=== PATIENT | male | born 1970 | race Caucasian/White ===

== ENCOUNTER 2017-03-25 10:03 | Emergency (ER) | payer OTHER ==
[~2017-03-25] VITALS: Ht 177.8 cm; Wt 102.3 kg
[~2017-03-25 10:03] MED LIST: LISI40TA PO; METH54TA4 PO
[2017-03-25 10:16] VITALS: BP 153/108; PULSE 90; RESP 12; O2SAT 97
--- NOTE | 2017-03-25 11:00 | ED.REPORT ---
HPI-Extremity Problem Lower Date of Service Mar 25, 2017 ED Provider: Doc,Ed MD History of Present Illness: swelling above right knee noticed 4 days ago. called MD , told to go to ER for ? dvt. denies pain. Nursing Notes Stated Complaint: RT LEG SWELLING Chief Complaint: Extremity Trauma Nursing Notes Reviewed: Yes Allergies: Coded Allergies: codeine (Verified Allergy, Severe, 01/28/15) propranolol (Verified Allergy, Severe, 01/28/15) Scheduled Lisinopril-Expunged Drug, Do Not Renew! (Lisinopril-Expunged Drug, Do Not Renew! ) 40 Mg Tablet 5 MG PO DAILY Methylphenidate ER (Concerta) 54 Mg Tab.er.24 54 MG PO DAILY General Time Seen by MD: 10:59 Chief Complaint Knee injury left Hx Obtained From: Patient Onset Occurred: 4 days ago Caused by: Accidental Past Medical History Past Medical History Notes: PCP: Dr. Gomez Chronic pain Past Medical History ADHD Double compound fracture Hernia Reports: Hypertension Past Surgical History Left leg double compound fracture repair 2 PCL's repalcement in knee Hernia surgery Vasestomy 2x Vasectomy reversal Family History Noncontributory Smoking History Former Smoker Social History Alcohol Use: "Social" Drug Use: Denies drug use Other Social History: Occupation lives with of 21 years and 4 kids Ambulatory Status Independent Review of Systems Basic Review of Systems Eyes: Vision NL, No discharge : No dysuria, No frequency Psychiatric: Normal thought content Physical Exam Initial Vital Signs Vital Signs (First) Date Time Temp Pulse Resp B/P Pulse Ox O2 Delivery O2 Flow Rate FiO2 03/25/17 10:16 37.0 90 12 153/108 97 Room Air Initial VS: Reviewed, Vital signs abnormal General/Constitutional: Well-developed, Well-nourished Head / Eyes: Atraumatic, Normocephalic, PERRL ENT: Mucous membranes moist, Conjunctiva normal, No scleral icterus Neck: Supple, Non-tender, Full range of motion Respiratory: Breath sounds normal, Clear to auscultation, No respiratory distress Cardiovascular: Regular rate & rhythm, Heart sounds normal, Intact distal pulses Abdomen / GI: Soft, Non-tender, No guarding, No rebound, No distention Back: No CVA tenderness Lymphatic: No lymphadenopathy Upper Extremities: Vascular intact, Neuro intact, No swelling, No tenderness Skin: Warm, Dry, No cyanosis Neurologic: Alert, Oriented, Nonfocal Psychiatric: Mood/affect normal, Behavior normal, Normal thought content right thigh has sqwelling medially. No increased warmth, no erthyma, knee has full range of motion Ankle / Foot: Atraumatic, Inspection NL, Full range of motion, No swelling, No erythema General/Constitutional: Awake, Alert, No acute distress, Well appearing, Well developed Respiratory / Chest: Atraumatic, Breath sounds NL, Breath sounds = bilat Cardiovascular: Heart rate NL, Regular rhythm, Heart sounds NL, No gallop Interpretation & Diagnostics Interpretation & Diagnostics: US report per tech no DVT, area of swelling shows small amount of fluid. No sign of lipoma Lab Results Interpretation Result Diagram: 03/25/17 1140 03/25/17 1140 Test 03/25/17 11:40 White Blood Count 5.4th/mm3 (3.8-10.1) Red Blood Count 4.89mil/mm3 (4.40-5.80) Hemoglobin 14.8g/dL (13.8-17.2) Hematocrit 41.5% (41.0-50.0) Mean Corpuscular Volume 84.9fL (81-100) Mean Corpuscular Hemoglobin 30.3pg (27.0-35.0) Mean Corpuscular Hemoglobin Concent 35.7% (32.0-37.0) Red Cell Distribution Width 12.9% (12.3-15.4) Platelet Count 139bil/L (150-400) Neutrophils (%) (Auto) 55.9% (40-74) Lymphocytes (%) (Auto) 26.6% (14-46) Monocytes (%) (Auto) 14.4% (4-12) Eosinophils (%) (Auto) 2.2% (0-5) Basophils (%) (Auto) 0.2% (0-3) Erythrocyte Sedimentation Rate 7mm/hr (0-15) Sodium Level 138mEq/L (134-144) Potassium Level 4.2mEq/L (3.5-5.2) Chloride Level 101mEq/L (97-108) Carbon Dioxide Level 23mmol/L (18-29) Blood Urea Nitrogen 14mg/dL (6-24) Creatinine 0.90mg/dL (0.76-1.27) Estimat Glomerular Filtration Rate 97mL/min (>59) Glucose Level 111mg/dL (60-99) Calcium Level 9.7mg/dL (8.5-10.1) Total Bilirubin 1.2mg/dL (0.0-1.2) Aspartate Amino Transf (AST/SGOT) 38U/L (0-50) Alanine Aminotransferase (ALT/SGPT) 66U/L (0-44) Alkaline Phosphatase 83U/L (25-150) C-Reactive Protein 1.0mg/dL (0.0-0.5) Total Protein 7.5g/dL (6.4-8.4) Albumin 4.6g/dL (3.4-5.0) X-Ray Interpretation Xray Interpretation: PROCEDURE: X-RAY RIGHT KNEE, THREE VIEWS ([id number]) INDICATIONS: swelling above knee TECHNIQUE: 3 views of the knee were acquired. COMPARISON: None. FINDINGS: Bones: No fractures or dislocations. No suspicious bony lesions. Minimal medial compartmental narrowing. Soft tissues: Trace joint effusion. No suspicious soft tissue calcifications. IMPRESSION: No acute fractures. Trace joint effusion. Minimal medial compartment narrowing. Dictated by: Stan Das M.D. on 03/25/2017 at 12:01 Approved by: Stan Das M.D. on 03/25/2017 at 12:02 Re-Eval/Medical Decision Med Decision/Clinical Course 46 year old male presents to the ER for evualation of right thigh swelling. Noticed the swelling 4 days ago while bending. No erthyma, no increased in warmth, denies injury and pain. Labs are unremarkable. X-ray is negative. US is negative for clot. US of area of swelling shows small amount of fluid. No sign of compartment syndrome or fracture. Discharge & Departure Impression: Primary Impression: Swelling of thigh Disposition: Home Additional Instructions: Your labs are reassuring. The x-ray is negative. The US does not show any evidence of a deep vein blood clot. The US exam of the area of swelling does not show any sign of a lipoma. It does show a small amount of fluid. Use ice to the site 3 to 4 times a day for 15 minutes on and 15 minutes off. Start ibuprofen 800 mg 3 times a day for 5 day to help reduce the swelling. Please follow with primary care to make sure this resolves. REturn with any concerns. Referrals: Marina Gomez MD (PCP) EDSupervising Provider for APC: Eric Solomon MD copies to: Marina Gomez MD, Sue ARNP Mar 25, 2017 11:00
[2017-03-25 12:06] LABS: BASOPHILS % (AUTO) 0.2 % (0-3); EOSINOPHILS % (AUTO) 2.2 % (0-5); MONOCYTES % (AUTO) 14.4 % (4-12); Mean Corpuscular Hemoglobin 30.3 pg (27.0-35.0); Mean Corpuscular Volume 84.9 fL (81-100); NEUTROPHILS % (AUTO) 55.9 % (40-74); Platelet Count 139 bil/L (150-400)
--- NOTE | 2017-03-25 12:09 | DRSVH ---
PROCEDURE: X-RAY RIGHT KNEE, THREE VIEWS ([id number]) INDICATIONS: swelling above knee TECHNIQUE: 3 views of the knee were acquired. COMPARISON: None. FINDINGS: Bones: No fractures or dislocations. No suspicious bony lesions. Minimal medial compartmental narr owing. Soft tissues: Trace joint effusion. No suspicious soft tissue calcifications. IMPRESSION: No acute fractures. Trace joint effusion. Minimal medial compartment narrowing. Dictated by: Stan Das M.D. on 03/25/2017 at 12:01 Approved by: Stan Das M.D. on 03/25/2017 at 12:02
[2017-03-25 13:15] VITALS: BP 123/87; PULSE 66; RESP 16; O2SAT 99
[2017-03-25 13:24] LABS: ERYTHROCYTE SEDIMENTATION RATE 7 mm/hr (0-15)
[2017-03-25 15:30] VITALS: BP 137/71; PULSE 84; RESP 16; O2SAT 96
--- NOTE | 2017-03-25 16:58 | DRSVH ---
PROCEDURE: US VEINOUS LEG DUPLEX UNILATERAL, RIGHT INDICATIONS: swelling above right knee TECHNIQUE: Real-time imaging, as well as color and pulse Doppler interrogation, were performed of the lower extr emity deep veins from the inguinal ligament to the popliteal fossa. COMPARISON: [facility], US, TESTICULAR & SCROTAL SONOGRAM, 04/19/2014, 1:36. FINDINGS: The deep veins are normally compressible, and free of intraluminal thrombus. Color and pu lse Doppler demonstrate normal phasic intraluminal flow. There is normal augmentation response to di stal compression maneuver. IMPRESSION: No sonographic evidence of right lower extremity venous thrombus. Dictated by: Stan Das M.D. on 03/25/2017 at 16:49 Approved by: Stan Das M.D. on 03/25/2017 at 16:50
== END 2017-03-25 15:30 | disposition home or self-care (01) ==
LOC: SED 10:03
DX: M79.89 Other specified soft tissue disorders (principal); I10 Essential (primary) hypertension; F90.9 Attention-deficit hyperactivity disorder, unspecified type; Z87.891 Personal history of nicotine dependence; Z98.890 Other specified postprocedural states; Z88.5 Allergy status to narcotic agent; Z88.8 Allergy status to other drugs, medicaments and biological substances